=== PATIENT | male | born 1950 | race Caucasian/White ===

== ENCOUNTER 2017-06-01 13:02 | Emergency (ER) | payer BC, MEDICARE ==
[2017-06-01 13:14] VITALS: BP 137/83
[2017-06-01] MEDS ORDERED: Fluorescein Sodium TOPICAL* 1 MG TEST ONE (13:40)
[2017-06-01] MEDS ORDERED: BSS OPTH.SOL* BTL ONE (13:41)
--- NOTE | 2017-06-01 13:42 | UC ---
Skin Complaint HPI - HPI Summary HPI Summary: felt like a bee sting on the left side of his forehead 5-6 days ago then broke out with a rash that developed a vesicle- has been putting mainor on it---no rash in or near ear or eye - History of Current Complaint Chief Complaint: UCSkin Time Seen by Provider: 06/01/17 13:31 Stated Complaint: blisters on head from bee sting Hx Obtained From: Patient Onset/Duration: Sudden Onset, Lasting Days - 6, Still Present Timing: Constant Onset Severity: Mild Current Severity: Mild Location: Discrete Character: Redness Aggravating Factor(s): Nothing Alleviating Factor(s): Nothing Associated Signs & Symptoms: Positive: Rash - Allergy/Home Medications Allergies/Adverse Reactions: Allergies Allergy/AdvReac Type Severity Reaction Status Date / Time No Known Allergies Allergy Verified 06/01/17 13:14 Home Medications: Home Medications Dulaglutide (NF) [Trulicity (NF)] 0.75 mg SUBCUT WEEKLY 06/01/17 [History Confirmed 06/01/17] Ibuprofen [Advil] 200 mg PO Q6H PRN 06/01/17 [History Confirmed 06/01/17] Pioglitazone TAB* [Actos TAB*] 45 mg PO DAILY 06/01/17 [History Confirmed ] Review of Systems Constitutional: Negative Skin: Rash - red base with vesicles Eyes: Negative ENT: Negative Respiratory: Negative Cardiovascular: Negative Gastrointestinal: Negative Genitourinary: Negative Motor: Negative Neurovascular: Negative Musculoskeletal: Negative Neurological: Negative Psychological: Negative Is Patient Immunocompromised?: No All Other Systems Reviewed And Are Negative: Yes PMH/Surg Hx/FS Hx/Imm Hx Previously Healthy: Yes Endocrine History: Diabetes, Dyslipidemia Cardiovascular History: Hypertension Other History Of: Negative For: HIV, Hepatitis B, Hepatitis C, Anticoagulant Therapy - Surgical History Surgical History: Yes Surgery Procedure, Year, and Place: KNEE SURGERY - REPAIR TORN MENISCUS, ACL REPAIR, APPENDECTOMY - Family History Known Family History: Positive: Hypertension, Diabetes - Social History Occupation: Retired Lives: With Family Alcohol Use: None Substance Use Type: None Smoking Status (MU): Never Smoked Tobacco - Immunization History Most Recent Influenza Vaccination: none Most Recent Tetanus Shot: <5 YEARS Immunizations Comment: patient states he has had a Shingles Vaccine Physical Exam Triage Information Reviewed: Yes Appearance: Well-Appearing, No Pain Distress, Well-Nourished Vital Signs: Initial Vital Signs Temp 97.7 F 06/01/17 13:08 Pulse 71 06/01/17 13:08 Resp 17 06/01/17 13:08 BP 137/83 06/01/17 13:08 Pulse Ox 95 06/01/17 13:08 Vital Signs Reviewed: Yes Eye Exam: Normal Eyes: Positive: Conjunctiva Clear ENT Exam: Normal ENT: Positive: Normal ENT inspection, Hearing grossly normal, Pharynx normal, TMs normal. Negative: Nasal congestion, Tonsillar swelling, Tonsillar exudate, Trismus, Muffled voice, Hoarse voice, Sinus tenderness Dental Exam: Normal Neck exam: Normal Neck: Positive: Supple, Nontender, No Lymphadenopathy Respiratory Exam: Normal Respiratory: Positive: Chest non-tender, Lungs clear, Normal breath sounds, No respiratory distress, No accessory muscle use Cardiovascular Exam: Normal Cardiovascular: Positive: RRR, No Murmur, Pulses Normal, Brisk Capillary Refill Musculoskeletal Exam: Normal Musculoskeletal: Positive: Strength Intact, ROM Intact, No Edema Neurological Exam: Normal Neurological: Positive: Alert, Muscle Tone Normal Psychological Exam: Normal Skin: Positive: rashes Course/Dx - Course Course Of Treatment: Viroptic, acyclovir, follow with optho in the next 2 days - Diagnoses Provider Diagnoses: Shingles left forehead Discharge - Discharge Plan Condition: Stable Disposition: HOME Prescriptions: Acyclovir* [Zovirax 400 MG TAB*] 800 mg PO SEE INSTRUCTIONS #70 tab Trifluridine 1% OPTH.ANTONIO*(NF) [Viroptic 1% OPTH.ANTONIO*] 1 drop .SEE ORDER Q2HR #1 btl Patient Education Materials: Shingles (ED), How to Use Eye Drops (ED) Referrals: Mohamud De Paz MD [Medical Doctor] - 3 Days
[2017-06-01] MEDS ORDERED: Fluorescein Sodium TOPICAL* 1 MG TEST OPHTHALMIC ONE (13:46)
== END 2017-06-01 14:20 | disposition home or self-care (01) ==
LOC: UCEAST 13:02
DX: B02.9 Zoster without complications (principal); E11.9 Type 2 diabetes mellitus without complications; E78.5 Hyperlipidemia, unspecified; I10 Essential (primary) hypertension
CPT/HCPCS: 87529; 87798; 99212; A9270-GY; G0463

== ENCOUNTER 2018-07-29 20:55 | Emergency (ER) | payer BC ==
[2018-07-29 21:10] VITALS: BP 139/79
--- NOTE | 2018-07-29 21:24 | UC ---
Skin Complaint HPI - HPI Summary HPI Summary: Pt was walking up steps and holding onto the wooden hand rail and sustained a splinter to his right middle finger. - History of Current Complaint Chief Complaint: UCSkin Time Seen by Provider: 07/29/18 20:57 Stated Complaint: SPLINTER IN FINGER Hx Obtained From: Patient Onset/Duration: Sudden Onset Skin Exposure Onset/Duration: Hours Ago - Just prior to arrival Timing: Constant Onset Severity: Mild Current Severity: Mild Pain Intensity: 4 Location: Hand (Right) - Middle finger of right hand Character: Painful - Stings per patient Aggravating Factor(s): Other - Other family member tried to get splinter out without success Alleviating Factor(s): Nothing Associated Signs & Symptoms: Positive: Negative Related History: Foreign Body - Allergy/Home Medications Allergies/Adverse Reactions: Allergies Allergy/AdvReac Type Severity Reaction Status Date / Time No Known Allergies Allergy Verified 07/29/18 21:02 Home Medications: Home Medications Latanoprost/Pf [Latanoprost 0.005% Eye Drop] 7.5 ml OP DAILY 07/29/18 [History Confirmed 07/29/18] glipiZIDE [Glipizide ER] 5 mg PO DAILY 07/29/18 [History Confirmed 07/29/18] PMH/Surg Hx/FS Hx/Imm Hx Previously Healthy: Yes Other History Of: Negative For: HIV, Hepatitis B, Hepatitis C, Anticoagulant Therapy - Surgical History Surgical History: Yes Surgery Procedure, Year, and Place: KNEE SURGERY - REPAIR TORN MENISCUS, ACL REPAIR, APPENDECTOMY - Family History Known Family History: Positive: Hypertension, Diabetes - Social History Alcohol Use: None Substance Use Type: None Smoking Status (MU): Never Smoked Tobacco - Immunization History Most Recent Influenza Vaccination: none Most Recent Tetanus Shot: <5 YEARS Immunizations Comment: patient states he has had a Shingles Vaccine Review of Systems All Other Systems Reviewed And Are Negative: Yes Constitutional: Positive: Negative Skin: Positive: Negative Eyes: Positive: Negative ENT: Positive: Negative Respiratory: Positive: Negative Cardiovascular: Positive: Negative Gastrointestinal: Positive: Negative Genitourinary: Positive: Negative Motor: Positive: Negative Neurovascular: Positive: Negative Musculoskeletal: Positive: Negative Neurological: Positive: Negative Psychological: Positive: Negative Is Patient Immunocompromised?: No Physical Exam Vital Signs: Initial Vital Signs Temp 97.6 F 07/29/18 21:02 Pulse 86 07/29/18 21:02 Resp 15 07/29/18 21:02 BP 139/79 07/29/18 21:02 Pulse Ox 93 07/29/18 21:02 Course/Dx - Diagnoses Provider Diagnosis: Splinter of finger without major open wound or infection Discharge - Sign-Out/Discharge Documenting (check all that apply): Patient Departure All imaging exams completed and their final reports reviewed: No Studies - Discharge Plan Condition: Good Disposition: HOME Patient Education Materials: Soft Tissue Foreign Body (ED) Referrals: Edi Ring MD [Primary Care Provider] - Additional Instructions: Keep the area clean and change the bandaid daily. Watch for signs of infection and follow up with your doctor if you develop redness, tenderness, red streaks, pus drainage. - Billing Disposition and Condition Condition: GOOD Disposition: Home
== END 2018-07-29 21:20 | disposition home or self-care (01) ==
LOC: UCEAST 20:55
DX: S60.452A Superficial foreign body of right middle finger, initial encounter (principal); W45.8XXA Other foreign body or object entering through skin, initial encounter; Y92.9 Unspecified place or not applicable
CPT/HCPCS: 99211; G0463